=== PATIENT | female | born 1995 | race Caucasian/White ===

== ENCOUNTER → 2021-06-17 | Outpatient (REF) ==
--- NOTE | 2021-06-17 13:43 | REP ---
INDICATION: PAIN. COMPARISON: None. 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 No acute fracture/compression injury. IMPRESSION: Marked levoconvex scoliosis through the thoracic spine. <Electronically signed by Prasanna Valencia > 06/17/21 [id number]
== END ==
LOC: M PLAIMG 11:49
PROVIDERS: ATTEND Internal Medicine
DX: Z00.00 Encounter for general adult medical examination without abnormal findings (principal)

== ENCOUNTER → 2024-01-04 | Outpatient (REF) | LOC: M PLAIMG 13:04 | PROVIDERS: ATTEND Internal Medicine | DX: R52 Pain, unspecified (principal) ==